=== PATIENT | male | born 1995 | race Caucasian/White ===

== ENCOUNTER 2017-05-07 18:25 | Emergency (ER) | payer OTHER ==
[~2017-05-07] VITALS: Ht 177.8 cm; Wt 54.4 kg
--- NOTE | ~2017-05-07 | CR72 ---
[facility] A Service of [facility] RADIOLOGY TEXT RESULTS PATIENT: LORRAINE WHALEN LOCATION: [facility] : [birth year] UNIT #: [id number] AGE: [address]: Ana Maria Morales APRN SEX: M ORDER DR: [id number] [place], [place] [address] [id number] MR#: [id number] Acc #: [id number] NAME: LORRAINE WHALEN : 1995 SEX: M STUDY DATE/TIME: 05/07/2017 20:07 UNIT: [facility] ROOM: STUDY DESCRIPTION: CR Chest Single View Portable Attending Physician: Ana Maria Morales A.P.R.N. Ordering Physician: Ana Maria Morales A.P.R.N. Primary Care Physician: No Primary Care Physician MEDICAL IMAGING REPORT This report is preliminary unless electronic signature is present EXAM AP portable chest DATE 05/07/2017 HISTORY Cough, congestion, fever and sore throat. COMPARISON None. FINDINGS: A single AP portable view of the chest shows both lungs to be clear. The heart is normal in size. The mediastinal contour is normal. No significant bone abnormalities are seen. IMPRESSION Normal portable chest. Dictated by... Temitope Goodwin M.D. THIS IS AN ELECTRONICALLY VERIFIED REPORT Temitope Goodwin M.D. at 05/10/2017 9:53 AM [facility]/stefan TD: 05/09/2017 07:18 JOB #: [id number] MEDICAL IMAGING REPORT [facility] A Service of [facility] RADIOLOGY TEXT RESULTS PATIENT: LORRAINE WHALEN LOCATION: [facility] : [birth year] UNIT #: [id number] AGE: [address]: Ana Maria Morales APRN SEX: M ORDER DR: Page 1 of 1 COPY
[2017-05-07 20:30] LABS: INFLUENZA A NEG (NEG); INFLUENZA B NEG (NEG)
== END 2017-05-07 21:26 | disposition home or self-care (01) ==
LOC: CFTX 18:25 → CED 18:25 → CFTX 20:16
PROVIDERS: Nurse Practitioner
DX: J06.9 Acute upper respiratory infection, unspecified (principal); Z88.0 Allergy status to penicillin; Z88.1 Allergy status to other antibiotic agents
CPT/HCPCS: 71010; 87651; 87804; 96361; 96374; 99284; J2405